=== PATIENT | male | born 1985 | race Two or more races ===

== ENCOUNTER 2019-02-25 19:51 | Emergency (ER) | payer MEDICAID ==
--- NOTE | 2019-02-25 20:47 | ED Physician Chart ---
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 The nodule became larger this evening. Pt did not know what caused that. He guessed it might be a "bug bite". Allergies:: Allergies Allergy/AdvReac Type Severity Reaction Status Date / Time No Known Allergies Allergy Verified 02/25/19 20:03 Vitals:: Vital Signs - 8 hr 02/25/19 20:00 Temp 98.9 F HR 89 RR 18 BP 122/73 O2 Sat % 96 ED Review of Systems - Review of Systems General/Constitutional: No fever Skin: Skin lesions Head: No headache Eyes: No pain ENT: No nasal drainage Neck: Other (neck painful skin nodule ) Cardio Vascular: No chest pain Pulmonary: No SOB GI: No nausea, No vomiting Musculoskeletal: No bone or joint pain Neurological: No focal symptoms ED Past Medical History - Past Medical History Past Medical History: No significant medical hx Social History: Smoker, Alcohol, No Drug Use Surgical History: None Family Medical History - Family Member Mother History Unknown: Yes ED Physical Exam - Physical Examination General/Constitutional: Awake, Alert Head: Atraumatic Eyes: PERRL Other Skin comments:: Right lateral neck skin nodule, red, raised, 1.5 cm in size, firm Neck: No nuchal rigidity Respiratory: Clear to Auscultation, No Wheeze/Rhonchi/Rales Cardio Vascular: RRR, No murmur, gallop, rubs, NL S1 S2 GI: No tenderness/rebounding/guarding Extremities: normal strength in all extremities Neuro/Psych: No focal deficits ED Assessment - Assessment General Assessment: Furuncle Assessment/Comments:: Keflex 500 mg PO x 1 Bacitracin topical apply ED Septic Shock - . Is Septic Shock (SBP<90, OR Lactate>4 mmol\\L) present?: No - <6hrs of presentation: Vital Signs: Vital Signs - 8 hr 02/25/19 20:00 Temp 98.9 F HR 89 RR 18 BP 122/73 O2 Sat % 96 ED Reassessment (Disposition) - Reassessment Reassessment Condition:: Improved - Aftercare/Follow up Instructions Notes:: Follow up PCP or return to ER if symptoms worsen Medication Prescribed:: Keflex 500 mg PO Bid x 7 days - Patient Disposition Discharge/Transfer:: Home
[2019-02-25] MEDS ORDERED: Bacitracin pkt 1 gm Pkt TP STA (20:49)
[2019-02-25] MEDS ORDERED: Bacitracin pkt 1 gm Pkt TP ONE (20:52)
== END 2019-02-25 21:15 | disposition home or self-care (01) ==
LOC: ER 19:51
DX: L02.12 Furuncle of neck (principal); M54.2 Cervicalgia; F17.200 Nicotine dependence, unspecified, uncomplicated
CPT/HCPCS: Z7502; Z7610